=== PATIENT | male | born 1990 | race Caucasian/White ===

== ENCOUNTER 2017-01-16 16:18 | Emergency (ER) | payer OTHER ==
[~2017-01-16 16:18] MED LIST: ALBUTEROL17 GM INH; AMOXICILLIN; IBUPROFEN; MOTRIN PO; NO MEDICATIONS; PERCOCET 10/3251 TAB; TYLENOL #3 PO; ZITHROMAX PO; ZOFRAN PO
== END 2017-01-16 16:30 | disposition home or self-care (01) ==
LOC: SED 16:18
DX: T40.1X1A Poisoning by heroin, accidental (unintentional), initial encounter (principal); F17.210 Nicotine dependence, cigarettes, uncomplicated; Z79.2 Long term (current) use of antibiotics; Z79.899 Other long term (current) drug therapy; Z91.040 Latex allergy status
CPT/HCPCS: 99282